=== PATIENT | female | born 1990 | race Caucasian/White ===

== ENCOUNTER → 2019-11-05 | Outpatient (CLI) | payer MEDICAID, SELFPAY ==
[2019-11-05 16:04] LABS: T4 Free Direct 1.23 ng/dL (0.76-1.46); Thyroid Stim Hormone (TSH) 1.93 uIU/mL (0.358-3.74)
== END | disposition home or self-care (01) ==
PROVIDERS: PCP Family Medicine
DX: E03.9 Hypothyroidism, unspecified (principal)
CPT/HCPCS: 36415; 84439; 84443

== ENCOUNTER 2020-06-22 19:49 | Observation (INO) | payer MEDICAID, SELFPAY ==
[2020-06-22 19:50] VITALS: BP 121/69; PULSE 96; RESP 16; TEMP 36.2; O2SAT 95; BMI 38.8
--- NOTE | 2020-06-22 20:07 | EDS_ITS ---
HPI HPI - GI History of Present Illness Chief Complaint: Abd Pain Detail of Chief Complaint: 29-year-old Down's female with prior hernia repair c/o pain. Informant: patient and parent Abdominal Pain/Flank Pain Onset: Yesterday Timing: Continuous Quality: Aching Current Severity: Mild Maximum Severity: Mild Worsened by: Car ride Nausea/Vomiting/Emesis GI Symptom: Negative for Nausea and Vomiting Onset: Yesterday Diarrhea/Melena/Hematochezia GI Symptom: Negative for Diarrhea Associated Symptoms Associated Symptoms: Negative for Dysuria LMP: Mom also states patient has foul-smelling urine. Narrative Narrative: Female with prior ventral hernia repair. Mom states that yesterday she complained of pain. Denies any nausea or vomiting. No fever or chills. Typically does not complain of pain. Mom also states that she has had some foul-smelling urine the last day or so. No fever or chills. Prior similar symptoms: No Recent Illness/Hospitalization: No PFSH PFSH Medical History Chronic pain Down's syndrome Yuridia's disease Hypothyroidism Seizures Sleep apnea Home Medications levothyroxine [Synthroid] 125 mcg PO DAILY 06/22/20 [History Last Taken 06/21/20 22:00] Allergy/AdvReac Type Severity Reaction Status Date / Time No Known Allergies Allergy Verified 06/22/20 19:52 Family History (Updated 06/22/20 @ 21:[address] Tere Up MD) Mother No problems noted. Surgical History History of hernia surgery History of open heart surgery Social History Smoking Status: Never smoker ROS ROS ED Constitutional Constitutional ED: Reports systems reviewed and no addt'l complaints, except as documented Eyes Eyes: Reports systems reviewed and no addt'l complaints, except as documented ENT ENT ED: Reports systems reviewed and no addt'l complaints, except as documented Cardiovascular Cardiovascular: Reports systems reviewed and no addt'l complaints, except as documented Respiratory/Chest Respiratory/Chest: Reports systems reviewed and no addt'l complaints, except as documented Gastrointestinal Gastrointestinal: Reports systems reviewed and no addt'l complaints, except as documented Genitourinary Genitourinary ED: Reports systems reviewed and no addt'l complaints, except as documented Musculoskeletal Musculoskeletal: Reports systems reviewed and no addt'l complaints, except as documented Integumentary Reports systems reviewed and no addt'l complaints, except as documented Neurologic Neurologic: Reports systems reviewed and no addt'l complaints, except as documented Psychiatric Psychiatric: Reports systems reviewed and no addt'l complaints, except as documented Endocrine Endocrinology: Reports systems reviewed and no addt'l complaints, except as documented Hematologic/Lymphatic Hematologic/Lymphatic: Reports systems reviewed and no addt'l complaints, except as documented Allergic/Immunologic Allergic/Immunologic ED: Reports systems reviewed and no addt'l complaints, except as documented EXAM Physical Exam Const Vital Signs: 06/22/20 19:50 Temperature 97.2 F L Temperature Source Temporal Pulse Rate 96 Respiratory Rate 16 Blood Pressure 121/69 H Blood Pressure Mean 86 Pulse Ox 95 Oxygen Delivery Method Room Air Constitutional Narrative: . 29-year-old female no acute distress. Mom at bedside. Vital signs are stable afebrile. HEENT Reports moist mucous membranes normocephalic and atraumatic Eyes PERRL Neck no lymphadenopathy and supple Resp normal respiratory effort and clear to auscultation bilaterally Cardio regular rate and regular rhythm GI non-distended GI Narrative: History of ventral hernia that is tender to palpation and I cannot reduce it at this time. She has a prior surgical scar over the site. That is well-healed. Auscultation: normoactive bowel sounds Palpation: soft Back/Spine no CVA tenderness Extremity full ROM General Extremety ED: Negative for edema General Extremity: Negative for edema Neuro Sensorium / Orientation: alert, oriented to person and oriented to place Motor Exam: strength 5/5 throughout Psych mental status grossly normal Skin no wounds Lesions: no lesions Rashes: no rashes MDM MDM MDM Narrative Medical decision making narrative: 29-year-old abdominal pain from ventral hernia. Concern for possible incarcerated hernia. It is tender to palpation and I am unable to reduce it. I have already spoken to general surgery on-call Dr. Alize Up. We are obtaining a CT and once that is done I will speak to her again about the patient. Lab Data Attestation: I reviewed the patient's lab results. Lab results narrative: CBC and chemistries were unremarkable. UA showed no signs of infection. CAT scan of the abdomen pelvis with IV contrast only showed ventral hernias. This was also reviewed by the general surgeon. Patient was given Tylenol for pain. Mom did not want IV narcotic pain medications being given. Repeat exam at 9:50 PM the patient is doing well. She will be admitted to general surgery for hernia repair in the morning. Mom is comfortable with the plan. General surgery evaluated the patient at bedside. Labs: Laboratory Results - last 24 hr 06/22/20 06/22/20 06/22/20 20:14 20:14 21:10 WBC 6.1 RBC 4.49 Hgb 14.0 Hct 43.2 MCV 96.2 MCH 31.2 MCHC 32.4 RDW Std Deviation 50.4 H RDW Coeff of Maxim 14.3 Plt Count 266 MPV 9.4 Immature Gran % (Auto) 0.200 Neut % (Auto) 52.5 Lymph % (Auto) 30.2 [place] % (Auto) 10.6 H Eos % (Auto) 5.3 H Baso % (Auto) 1.2 H Absolute Neuts (auto) 3.2 Absolute Lymphs (auto) 1.83 Nucleated RBC % 0 Sodium 140 Potassium 3.8 Chloride 107 Carbon Dioxide 28.0 Anion Gap 5 BUN 14 Creatinine 1.22 H Estim Creat Clear Calc 49.75 Est GFR (MDRD) Af Amer 68 Est GFR (MDRD) Non-Af 56 L BUN/Creatinine Ratio 11.5 Glucose 92 Calcium 8.9 Urine Color Yellow Urine Clarity Clear Urine pH 5.0 Ur Specific [place] 1.015 Urine Protein Negative Urine Glucose (UA) Normal Urine Ketones Negative Urine Occult Blood 150 H Urine Nitrite Negative Urine Bilirubin Negative Urine Urobilinogen Normal Ur Leukocyte Esterase 25 H Urine RBC 0-5 SEEN Urine WBC 0-5 SEEN Ur Squamous Epith Cells 0-5 SEEN Urine Bacteria 0 SEEN Urine Mucus 0 SEEN Radiography Diagnostic Testing: Radiology Impression Abdomen/Pelvis CT 06/22/20 20:54 IMPRESSION: 2 fatty ventral hernias are noted. Electronically Signed: Vicente Mueller DO at 21:26 EDT Tel [phone], Service support , ADDENDUM: 06/22/20 0259 Treatment and Re-Evaluation Comments:: The patient be admitted to the hospital for general surgery in the morning Impression: Acute abdominal pain secondary to incarcerated ventral hernia History of Down syndrome Discharge Plan Triage Chief Complaint: Abd Pain ED Provider: Conrad Monreal Dx/Rx/DC Orders Primary Care Provider: Lori Contreras Disposition Discharge Date/Time: 06/22/20 22:32
[2020-06-22 20:20] LABS: Absolute Lymphocyte Count 1.83 X10^3/uL (0.83-4.51); Absolute Neutrophil Count 3.2 X10^3/uL (2.0-7.7); Basophil# 0.07 X10^3/uL; Basophil% 1.2 % (0-1); Eosinophil# 0.32 X10^3/uL; Eosinophils% 5.3 % (0-5); Hematocrit 43.2 % (37-47); Lymphocyte # 1.83 X10^3/ul (0.83-4.51); Lymphocyte % 30.2 % (19-41); Mean Corp Hgb Conc 32.4 g/dL (32-36); Mean Corpuscular Hgb 31.2 pg (27.0-32.0); Mean Corpuscular Volume 96.2 fL (81-99); Mean Platelet Vol. 9.4 fl (6.2-12.0); Monocyte# 0.64 X10^3/uL; Monocyte% 10.6 % (0-10); NRBC Flagged by Analyzer 0 % (0-5); Neutrophil # 3.19 X10^3/uL (2.7-7.7); Neutrophil % 52.5 % (47-70); Platelet Count 266 K/mm3 (150-450); RBC Distribution Width CV 14.3 % (11.6-14.6); RBC Distribution Width SD 50.4 fl (35.1-43.9); Red Blood Count 4.49 M/mm3 (4.2-5.4); White Blood Count 6.1 K/mm3 (4.4-11.0)
[2020-06-22] MEDS: 0.9% Normal Saline 1,000 ML 125 ML IV (20:22)
[2020-06-22 20:33] LABS: Anion Gap 5 (5-15); BUN 14 mg/dL (7-18); BUN/Creat Ratio 11.5 RATIO (10-20); Calcium,Total 8.9 mg/dL (8.5-10.1); Chloride 107 mmol/L (98-107); Creatinine, Serum 1.22 mg/dL (0.55-1.02); EST Glomerular Filtration Rate 56 mL/min (>60); Est Glom Filt Rate - Afr Amer 68 mL/min (>60); Estimated Creatinine Clearance 49.75 ml/min; Glucose 92 mg/dL (74-106); Potassium 3.8 mmol/L (3.5-5.1); Sodium Level 140 mmol/L (136-145)
--- NOTE | 2020-06-22 20:54 | CT_ITS ---
STUDY: CT ABDOMEN AND PELVIS WITH CONTRAST REASON FOR EXAM: Female, 29 years old. Ventral hernia pain inm upper abd RADIATION DOSAGE (If Supplied By Facility): CTDIvol = ( 14.89 ) mGy, DLP = ( 1049.28 ) mGycm TECHNIQUE: Transaxial images were obtained from the dome of the diaphragm to the symphysis pubis without oral contrast. IV 100mL Isovue-300 was administered. Sagittal and coronal images were reconstructed. Individualized dose optimization techniques were used for this CT. COMPARISON: None. FINDINGS: Left lower lobe infiltrate. The visualized portions of the heart are within normal limits. Normal liver. Normal gallbladder and extrahepatic biliary system. Normal spleen. Normal pancreas. Normal bilateral adrenal glands. Normal right kidney. Normal left kidney. Normal visualized stomach. Normal small intestine. Normal colon. The appendix is visualized and appears normal. Normal abdominal aorta. Normal inferior vena cava. Normal retroperitoneum. Normal urinary bladder. Fatty ventral hernias of the abdominal wall. Normal osseous structures. CT/Abdomen/Pelvis W IV Cont ONLY IMPRESSION: 2 fatty ventral hernias are noted. Electronically Signed: Vicente Mueller DO at 21:26 EDT Tel [phone], Service support ,
[2020-06-22 21:18] LABS: Bacteria 0 SEEN /hpf (None Seen); Color, Urine Yellow (Yellow); Glucose, Dipstick Normal (Normal); Ketone-Dipstick Negative (Negative); Leukocyte Esterase-Dipstick 25 /ul (Negative); Mucous, Urine 0 SEEN /hpf (<or=2+); Nitrite-Dipstick Negative (Negative); Occult Blood-Urine 150 /ul (Negative); Protein-Dipstick Negative (Negative); Specific Gravity, Urine 1.015 (1.002-1.030); Urine Bilirubin Dipstick Negative (Negative); Urine Clarity Clear (Clear); Urine Urobilinogen Normal (Normal)
[2020-06-22 21:23] LABS: Red Blood Cells-Urine 0-5 SEEN /hpf (0-5); Squamous Epithelial Cells - UA 0-5 SEEN /hpf (5-10); White Blood Cells 0-5 SEEN /hpf (0-5)
--- NOTE | 2020-06-22 21:29 | PCM.HP.STD ---
HPI - General HPI Narrative LIS CHILDRESS, is a 29 F who presents to the ER due to abdominal pain with her mother. Patient has past medical history for Down syndrome previous history of seizures which per the mother she has not been on any medication for years. Patient's pain started yesterday and patient continued to complain today. Patient was able to tolerate a diet did have dinner at 6 PM. Patient denies any nausea or vomiting. Patient had a previous ventral hernia repair about 3 years ago in [place] mother is unsure if there is any mesh that was used. CT abdomen pelvis did show 2 small incarcerated hernias containing fat. Patient's white blood count is within normal limits. [facility] Medical History (Updated 06/22/20 @ 21:[address] Tere Up MD) Down's syndrome Yuridia's disease Home Medications levothyroxine [Synthroid] 125 mcg PO DAILY 06/22/20 [History Last Taken Unknown] Allergy/AdvReac Type Severity Reaction Status Date / Time No Known Allergies Allergy Verified 06/22/20 19:52 Family History Mother No problems noted. Surgical History (Updated 06/22/20 @ 21:[address] Tere Up MD) History of hernia surgery History of open heart surgery Social History Smoking Status: Never smoker ROS Respiratory/Chest Respiratory/Chest: Denies cough Gastrointestinal Gastrointestinal: Reports abdominal pain; Denies anorexia, bloating, constipation or diarrhea Genitourinary Genitourinary: Denies burning urination Integumentary Integumentary: Denies jaundice Neurologic Neurologic: Denies seizure-like activity Psychiatric Psychiatric: Denies behavioral changes Hematologic/Lymphatic Hematologic/Lymphatic: Denies easy bleeding Allergic/Immunologic Allergic/Immunologic: Denies asthma Vital Signs Vital Signs Vital Signs: 06/22/20 19:50 Temperature 97.2 F L Temperature Source Temporal Pulse Rate 96 Respiratory Rate 16 Blood Pressure 121/69 H Blood Pressure Mean 86 Pulse Ox 95 Oxygen Delivery Method Room Air Physical Exam Const alert and no apparent distress General Appearance: cooperative Resp normal respiratory effort Cardio regular rate GI soft to palpation; Negative for non-distended Inspection: incision other (Supraumbilical well-healed) Palpation: tender and hernia other (Incisional/supraumbilical, incarcerated) Psych Appearance: appropriate Lab / Micro Data Result Diagrams: 06/22/20 20:14 06/22/20 20:14 Labs: Laboratory Results - last 24 hr 06/22/20 06/22/20 06/22/20 20:14 20:14 21:10 WBC 6.1 RBC 4.49 Hgb 14.0 Hct 43.2 MCV 96.2 MCH 31.2 MCHC 32.4 RDW Std Deviation 50.4 H RDW Coeff of Maxim 14.3 Plt Count 266 MPV 9.4 Immature Gran % (Auto) 0.200 Neut % (Auto) 52.5 Lymph % (Auto) 30.2 [place] % (Auto) 10.6 H Eos % (Auto) 5.3 H Baso % (Auto) 1.2 H Absolute Neuts (auto) 3.2 Absolute Lymphs (auto) 1.83 Nucleated RBC % 0 Sodium 140 Potassium 3.8 Chloride 107 Carbon Dioxide 28.0 Anion Gap 5 BUN 14 Creatinine 1.22 H Estim Creat Clear Calc 49.75 Est GFR (MDRD) Af Amer 68 Est GFR (MDRD) Non-Af 56 L BUN/Creatinine Ratio 11.5 Glucose 92 Calcium 8.9 Urine Color Yellow Urine Clarity Clear Urine pH 5.0 Ur Specific [place] 1.015 Urine Protein Negative Urine Glucose (UA) Normal Urine Ketones Negative Urine Occult Blood 150 H Urine Nitrite Negative Urine Bilirubin Negative Urine Urobilinogen Normal Ur Leukocyte Esterase 25 H Urine RBC 0-5 SEEN Urine WBC 0-5 SEEN Ur Squamous Epith Cells 0-5 SEEN Urine Bacteria 0 SEEN Urine Mucus 0 SEEN Radiology Impression Abdomen/Pelvis CT 06/22/20 20:54 IMPRESSION: 2 fatty ventral hernias are noted. Electronically Signed: Vicente Mueller DO at 21:26 EDT Tel [phone], Service support , Assessment & Plan Assessment/Plan (1) Incarcerated incisional hernia: Status: Acute Code(s): K43.0 - Incisional hernia with obstruction, without gangrene Plan: Reviewed the CT abdomen pelvis with the patient and her mother. Discussed the plan for an incisional hernia repair with possible mesh including risk but not limited to bleeding, infection, injury to another organ, recurrence of hernia, etc. Patient mother had no further questions this time. We will plan to schedule this for tomorrow. Okay for walter perry n.p.o. after midnight. Tere Up M.D. Pager: [phone] [facility] [address] [place] [address], [facility], [address] [place] [address] Office: [phone] Inpatient E&M: [id number] Init Hosp L3
[2020-06-22] MEDS: Acetaminophen 500 MG Tablet 1000 MG PO (21:36)
[2020-06-22 22:17] VITALS: BP 110/62; PULSE 73; RESP 16; TEMP 36.6; O2SAT 97
[2020-06-22 22:31] VITALS: BMI 43.2
[2020-06-22 22:39] VITALS: BP 98/49; PULSE 78; RESP 16; TEMP 36.9; O2SAT 98
[2020-06-22 23:09] VITALS: BP 97/52; PULSE 69; RESP 18; TEMP 36.4; O2SAT 94; BMI 43.2
[2020-06-22 23:32] VITALS: RESP 16; O2SAT 94
[2020-06-23] VITALS (9 sets, daily range): BP systolic 89–126; BP diastolic 45–75; PULSE 66–84; RESP 16–18; TEMP 36.2–36.9; O2SAT 90–100
[2020-06-23] MEDS: 0.9% Normal Saline 1,000 ML 110 ML IV ×3 (00:10→11:51)
--- NOTE | 2020-06-23 05:00 | EKG12_ITS ---
Test Reason : PRE-OP Blood Pressure : / mmHG Vent. Rate : 074 BPM Atrial Rate : 074 BPM P-R Int : 148 ms QRS Dur : 082 ms QT Int : 410 ms P-R-T Axes : 021 -39 002 degrees QTc Int : 455 ms Normal sinus rhythm Left axis deviation Poor R wave progression Abnormal ECG Confirmed by VANESA RODRIGUEZ, JL ([id number]), restaurant expeditor SUSAN GIPSON ([id number]) on 06/24/2020 9:33:05 AM Referred By: ROSS Confirmed By:JL ALEXIS MD
[2020-06-23] MEDS: Levothyroxine 125 MCG Tablet PO (05:59)
[2020-06-23] MEDS: Acetaminophen 325 MG Tablet 650 MG PO (05:59)
[2020-06-23 06:27] LABS: Absolute Lymphocyte Count 1.77 X10^3/uL (0.83-4.51); Absolute Neutrophil Count 2.9 X10^3/uL (2.0-7.7); Basophil# 0.08 X10^3/uL; Basophil% 1.4 % (0-1); Eosinophil# 0.29 X10^3/uL; Eosinophils% 5.1 % (0-5); Hematocrit 40.3 % (37-47); Hemoglobin 12.9 g/dL (12.0-15.0); Lymphocyte # 1.77 X10^3/ul (0.83-4.51); Lymphocyte % 31.3 % (19-41); Mean Corpuscular Hgb 30.8 pg (27.0-32.0); Mean Corpuscular Volume 96.2 fL (81-99); Mean Platelet Vol. 9.3 fl (6.2-12.0); Monocyte# 0.59 X10^3/uL; Monocyte% 10.4 % (0-10); NRBC Flagged by Analyzer 0 % (0-5); Neutrophil # 2.92 X10^3/uL (2.7-7.7); Neutrophil % 51.6 % (47-70); Platelet Count 231 K/mm3 (150-450); RBC Distribution Width CV 14.5 % (11.6-14.6); RBC Distribution Width SD 51.2 fl (35.1-43.9); Red Blood Count 4.19 M/mm3 (4.2-5.4); White Blood Count 5.7 K/mm3 (4.4-11.0)
[2020-06-23 06:58] LABS: Anion Gap 5 (5-15); BUN 14 mg/dL (7-18); BUN/Creat Ratio 14.8 RATIO (10-20); Calcium,Total 8.2 mg/dL (8.5-10.1); Chloride 107 mmol/L (98-107); Creatinine, Serum 0.95 mg/dL (0.55-1.02); EST Glomerular Filtration Rate 75 mL/min (>60); Est Glom Filt Rate - Afr Amer 90 mL/min (>60); Estimated Creatinine Clearance 127.36 ml/min; Glucose 84 mg/dL (74-106); Potassium 3.7 mmol/L (3.5-5.1); Sodium Level 139 mmol/L (136-145); Thyroid Stim Hormone (TSH) 3.69 uIU/mL (0.358-3.74)
[2020-06-23 08:14] LABS: Internal QC Validated? YES +Cl - CLEAR BKGD; Pregnancy, Urine Negative Negative
[2020-06-23] MEDS: Cefazolin 2 GM in 0.9% Normal Saline 100 ML IV (09:33)
--- NOTE | 2020-06-23 10:21 | OP.PCM_ITS ---
Problems Associated Problem List Diagnoses (1) Recurrent incisional hernia with incarceration: Report of Operation Date of Procedure: 06/23/20 Pre-Operative Diagnosis: Recurrent incarcerated incisional hernia Post-Operative Diagnosis: Same Surgery/Procedure Performed:: Repair of recurrent incarcerated incisional hernia receiving distribution station operator: Jeni Manzano Type of Anesthesia: General/Supplemental Anesthesiologist: José Miguel Chen Special Medications: Ancef 2 g IV x1 Specimen's removed: None Estimated Blood Loss (mL): <10 cc Fluids Replaced: cc Description of Procedure: Patient was placed supine on the operating table. Timeout was completed verifying correct patient, procedure, site, positioning, special, prior to beginning procedure. General anesthesia was induced. Abdomen was prepped and draped in usual sterile fashion. Previous midline supraumbilical incision was reincised with excision of scar with a 15 blade scalpel. This was deepened to the fascia with electrocautery. The 2 incisional hernias are identified and abdominal fat was reduced back into the abdomen. Each hernia was only 7 mm x 7 mm with normal tissue of 2.5 cm between the 2 defects. Hernias were closed with 0 Prolene [id number] sutures. Wound was irrigated. Local anesthesia quarter percent Marcaine total of 20 cc was used throughout the case. Incision was closed with 3-0 interrupted subdermal sutures and skin was closed with 4-0 Monocryl Steri-Strips and Telfa and OpSite. Patient was extubated. Patient tolerated procedure well and brought to the postanesthesia care unit in stable condition. Grafts/Implants Used: None Complications None
--- NOTE | 2020-06-23 10:28 | EX.PCM.DISCH ---
Discharge Instructions Outpatient Procedure Reason For Visit: ABD PAIN Procedure: Hernia Diet Discharge Diet: Light diet - advance as tolerated Activity Discharge Activity: May not drive while taking narcotic pain medications. May shower in (days): 1 (Keep umbilical dressing clean dry and intact for 5 days. Okay to tape off with a Ziploc bag to shower. Or lower shower and upper sponge bath.) Lifting Restrictions: no lifting >20 lbs x 2 wks, no strenuous exercise for 4 wks Dressing / Incision Call your doctor if your incision/area has: Continuous Slow Oozing, Sudden Increased Bleeding, Increased Pain/ Swelling, Increased Redness, Foul Smelling Discharge and Swelling at the incision site Call your doctor if you observe: Fever of 101 or Higher Remove Dressing in: 2 days Cleanse incision/area with: Soap & Water Additional Dressing/Incision Instructions:: Steri-Strips will fall off in 7 to 10 days, if they do not fall off okay to remove after 10 days. Follow Up Care Please Follow Up With: Tere Up MD When: Call the office for a follow-up appointment 2 weeks; after 5 PM and on the weekends call [phone] with any concerns. Test Results: Test results from this visit will be discussed in further detail at your follow-up appointment, if applicable. Discharge Plan Admission Admit Date/Time: 06/22/20 21:38 Primary Reason for Your Visit: Recurrent incarcerated incisional hernia Attending Provider: Tere Up Primary Care Provider: Lori Contreras Discharge Orders/Prescriptions Prescriptions: New hydrocodone-acetaminophen 5-325 mg tablet 1 tab PO Q6H PRN (Reason: pain) 2 Days Qty: 7 RF: 0 No Action levothyroxine [Synthroid] 125 mcg Tablet 125 mcg PO DAILY RF: 0 Referrals: Lori Cnotreras MD [Primary Care Provider] - Disposition Discharge Orders: Discharge Patient (Routine); Ordered 06/23/20 Ordered By: Dr. Tere Up
[2020-06-23] MEDS: Bupiv/Epi 0.25% 30 ML Vial (10:36)
--- NOTE | 2020-06-23 11:55 | PHA.DC.MR ---
Pharmacy Service has performed discharge medication reconciliation for this patient. The patient's discharge medication list was reviewed for discrepancies and discrepancies were resolved. Home Medications levothyroxine [Synthroid] 125 mcg PO DAILY 06/22/20 hydrocodone-acetaminophen 1 tab PO Q6H PRN 2 Days #7 tab 06/23/20
[2020-06-23] MEDS: 0.9% Saline Lock 10 ML Syringe IV (17:09)
[2020-06-23] MEDS: Ondansetron 4 MG/2 ML Vial IV (17:09)
[2020-06-23] MEDS: HYDROcodone Bitartrate/Apap 5/325 Tablet PO (17:09)
== END 2020-06-23 18:57 | disposition home or self-care (01) ==
LOC: ED 22:03 → MS3 22:43
PROVIDERS: Admitting Provider Surgery; Emergency Provider Emergency Medicine; PCP Family Medicine; Visit Provider Surgery
PROC: (CPT 49566; principal; 2020-06-23 09:15)
DX: K43.0 Incisional hernia with obstruction, without gangrene (principal); Q90.9 Down syndrome, unspecified; E06.3 Autoimmune thyroiditis; G47.30 Sleep apnea, unspecified; Z79.899 Other long term (current) drug therapy
CPT/HCPCS: 00832; 49566; 74177; 80048; 81001; 81025; 84443; 85025; 87426; 93005; 96361; 96374; 99218; 99251; 99284; J7030; Q9967; A4216; G0378; G0463; J2405